=== PATIENT | male | born 1970 | race Caucasian/White ===

== ENCOUNTER → 2018-04-09 | Outpatient (CLI) | payer BC, OTHER ==
[~2018-04-09] MED LIST: OXYC-57 PO
== END | disposition home or self-care (01) ==
LOC: C.RDSM 11:21
PROVIDERS: ATTEND Physical Medicine & Rehabilitation Sports Medicine
DX: Z09 Encounter for follow-up examination after completed treatment for conditions other than malignant neoplasm (principal); M25.512 Pain in left shoulder